=== PATIENT | female | born 1985 | race Two or more races ===

== ENCOUNTER 2021-01-15 09:39 | Outpatient (CLI) | payer OTHER | END 2021-01-15 18:00 | disposition home or self-care (01) | LOC: LAB 09:39 | PROVIDERS: ATTEND Obstetrics & Gynecology | DX: R10.2 Pelvic and perineal pain (principal); N93.8 Other specified abnormal uterine and vaginal bleeding; N94.89 Other specified conditions associated with female genital organs and menstrual cycle ==